=== PATIENT | male | born 1950 | race Caucasian/White ===

== ENCOUNTER 2022-12-24 14:20 | Emergency (ER) | payer MEDICARE, OTHER ==
[2022-12-24] MEDS ORDERED: Aspirin 81 MG Tab.Chew PO ONE (14:39)
[2022-12-24 14:56] LABS: BASOPHILS ABSOLUTE AUTO 0.03 K/uL (0.00-0.10); BASOPHILS PERCENT AUTO 0.6 % (0.1-1.3); EOSINOPHILS ABSOLUTE AUTO 0.09 K/uL (0.00-0.40); EOSINOPHILS PERCENT AUTO 1.7 % (0.0-5.4); HEMATOCRIT 40.1 % (38.4-49.7); HEMOGLOBIN 14.1 g/dL (12.9-16.9); IMMATURE GRAN PERCENT AUTO 0.2 % (0.0-0.7); LYMPHOCYTES ABSOLUTE AUTO 1.37 K/uL (0.8-3.3); LYMPHOCYTES PERCENT AUTO 25.1 % (11.4-47.7); MEAN CORPUSCULAR HEMOGLOBIN 31.5 pg (31.6-35.5); MEAN CORPUSCULAR HGB CONC 35.2 g/dL (31.6-35.5); MEAN CORPUSCULAR VOLUME 89.5 fL (81.4-99.0); MONOCYTES ABSOLUTE AUTO 0.45 K/uL (0.20-0.90); MONOCYTES PERCENT AUTO 8.3 % (3.3-12.6); NEUTROPHILS PERCENT AUTO 64.1 % (40.0-78.1); PLATELET COUNT,PLT 116 K/uL (130-375); RED BLOOD CELL COUNT 4.48 M/uL (4.14-5.76); WHITE BLOOD CELL COUNT,WBC 5.5 K/uL (3.2-11.0)
[2022-12-24 14:58] LABS: IMMATURE GRAN ABSOLUTE AUTO 0.01 K/uL (0.00-0.23)
[2022-12-24 15:16] LABS: ANION GAP 9.1 mmol/L (5.0-14.0); CREATININE 1.3 mg/dL (0.8-1.3); EST CRCL DRUG DOSING (CG) 58.05 mL/min; POTASSIUM,K 3.8 mmol/L (3.6-5.2)
== END 2022-12-24 16:28 | disposition home or self-care (01) ==
LOC: JP.ED 14:20
DX: R07.89 Other chest pain (principal); R06.02 Shortness of breath; I11.0 Hypertensive heart disease with heart failure; I50.9 Heart failure, unspecified; E11.9 Type 2 diabetes mellitus without complications; E66.9 Obesity, unspecified; Z68.31 Body mass index [BMI] 31.0-31.9, adult; Z87.891 Personal history of nicotine dependence
CPT/HCPCS: 36415; 71046; 80048; 84484; 85025; 93005; 99285; A9270